=== PATIENT | female | born 1950 | race Caucasian/White ===

== ENCOUNTER → 2016-08-02 | Day surgery (SDC) | payer MEDICARE ==
[~2016-08-02] MED LIST: ADVIL200 M2 PO; ALBUTEROL 0.5ML INH; AMITRIPTYLINE H25 MG PO; BUSPIRONE HCL10 MG PO; NEURONTIN300 MG; STIOLTO RESPIMAT4 GM INH; ZESTRIL2.5 MG PO; ZOLOFT100 MG PO; ZYRTEC10 M1 PO
--- NOTE | ~2016-08-02 | OR ---
Unit #: [id number] #: [id number] Patient: MICAELA MCGUIRE [id number] [address] [place], [place] [address] [id number] O MR#: [id number] NAME: MICAELA MCGUIRE ROOM: Date of Procedure: 08/02/2016 Admission Date: 08/02/2016 Surgeon: Case Smith M.D. : 1950 Attending Physician: Case Smith M.D. Primary Care Physician: Ferny Hannon M.D. [facility]ENTER OPERATIVE NOTE PROCEDURE PERFORMED Lumbar epidural steroid injection under x-ray guided needle placement. PREOPERATIVE DIAGNOSES 1. Acute lumbar radiculitis. 2. Spinal stenosis, lumbosacral spine. 3. Herniated disk, L4-L5. 4. Degenerative joint disease, lumbosacral spine. 5. Degenerative disk disease, lumbosacral spine. 6. Bilateral facet arthrosis, L4-L5. 7. Acute facet arthralgia. INDICATIONS FOR PROCEDURE The patient presents today with longstanding history of chronic lumbar radicular pain for approximately 20 years duration. The patient states over the course of the past year, her pain has become increasing in a crescendo pattern, which is breaking through her ongoing continuous conservative management of her back pain as well as her fibromyalgia. She is in possession of an MRI report, which shows a herniated disk at L4-L5 consistent with her symptoms as well as spinal stenosis and facet arthrosis, all of which are compatible with her symptomatology. After discussing risks and benefits of proceeding today with a lumbar approach epidural steroid injection at the L4-L5 level with a return followup visit on 08/16/2016, the patient agreed this would be the appropriate course of action. We also discussed referral to [facility] for potential radiofrequency ablation of her L4-L5 facet arthrosis. DESCRIPTION OF PROCEDURE Following these discussions, the patient was taken to the operating room, where she was prepped and draped in a sterile manner. Standard monitors were applied. She refused all forms of sedation and lumbar epidural space accessed at L4-L5 level using loss of resistance technique and x-ray guidance. Needle placement was confirmed with injection of 2 mL of Omnipaque. Approximately 70% flow was in the inferior direction, which was the desired result. Total x-ray time for this needle placement was 6 seconds. Following successful needle placement confirmation at the L4-L5 level, the patient received an injectate containing 4 mL normal saline and 80 mg of methylprednisolone. She tolerated this procedure well. She was discharged home with followup instructions, which are described above. Dictated by... Case Smith M.D. Unit #: [id number] #: [id number] Patient: MICAELA MCGUIRE/ryan TD: 08/03/2016 02:51 JOB #: [id number] [facility] OPERATIVE NOTE Page 1 of 1 X Manjit Smith MD X PROCEDURE OPERATIVE NOTE
== END | disposition home or self-care (01) ==
LOC: CCSC 09:45
DX: G89.29 Other chronic pain (principal); M51.17 Intervertebral disc disorders with radiculopathy, lumbosacral region; M47.26 Other spondylosis with radiculopathy, lumbar region; M48.07 Spinal stenosis, lumbosacral region; J44.9 Chronic obstructive pulmonary disease, unspecified; N18.1 Chronic kidney disease, stage 1; F17.210 Nicotine dependence, cigarettes, uncomplicated; Z88.5 Allergy status to narcotic agent; Z90.49 Acquired absence of other specified parts of digestive tract; Z90.710 Acquired absence of both cervix and uterus
CPT/HCPCS: J1040; J2250

== ENCOUNTER → 2016-08-16 | Day surgery (SDC) | payer MEDICARE ==
--- NOTE | ~2016-08-16 | OR ---
Unit #: [id number] #: [id number] Patient: MICAELA MCGUIRE [id number] [address] [place], [place] [address] [id number] O MR#: [id number] NAME: MICAELA MCGUIRE ROOM: Date of Procedure: 08/16/2016 Admission Date: 08/16/2016 Surgeon: Case Smith M.D. : 1950 Attending Physician: Case Smith M.D. Primary Care Physician: Ferny Hannon M.D. SUR[facility] CENTER OPERATIVE NOTE PREOPERATIVE DIAGNOSES 1. Acute lumbar radiculitis. 2. Spinal stenosis, lumbosacral spine. 3. Herniated disk, L4-5. 4. Herniated disk, L5-S1. 5. Degenerative joint disease, lumbosacral spine. 6. Degenerative disk disease, lumbosacral spine. PROCEDURE PERFORMED Lumbar epidural steroid injection under x-ray guided needle placement. INDICATIONS FOR PROCEDURE The patient presents today status post one previous lumbar approach epidural steroid injection for years long history of radiculitis, which had become exacerbated to the point that it was interfering with her activities of daily living. This exacerbation had failed to respond to conservative measures. At her initial visit, she received an L4-5 epidural steroid injection, which she states gave her 100% relief. However, over the intervening time between her initial injection and today's visit, she had a return of her symptoms to the point that she is now uncomfortable and again experiencing pain that is interfering with her activities of daily living. After discussing risks and benefits of proceeding today with a lumbar approach epidural steroid injection with a return date of 11/22, the patient agreed this would be the appropriate course of action. DESCRIPTION OF PROCEDURE She was then taken to the operating room, where she was prepped and draped in a sterile manner. Standard monitors were applied. She refused all forms of sedation and the lumbar epidural space accessed at the L4-5 level using loss of resistance technique and x-ray guidance. Needle placement was confirmed with the injection of 2 mL of Omnipaque. There was good superior and inferior flow to this L4-5 needle placement level. Following successful needle placement, which required an x-ray time of 5 seconds, the patient received an injectate containing 4 mL of normal saline and 80 mg of methylprednisolone. She tolerated this procedure well. She was discharged home with followup instructions, which include return dates as described above. Dictated by.Renetta. Case Smith M.D. Unit #: [id number] #: [id number] Patient: MICAELA MCGUIRE G/pinkyl TD: 08/16/2016 21:24 JOB #: [id number] [facility] OPERATIVE NOTE Page 1 of 1 X Manjit Smith MD X PROCEDURE OPERATIVE NOTE
== END | disposition home or self-care (01) ==
LOC: CCSC 08:24
DX: M51.16 Intervertebral disc disorders with radiculopathy, lumbar region (principal); M51.17 Intervertebral disc disorders with radiculopathy, lumbosacral region; M48.07 Spinal stenosis, lumbosacral region
CPT/HCPCS: J1040; J2250